=== PATIENT | female | born 1935 | race Caucasian/White ===

== ENCOUNTER → 2017-01-19 | Day surgery (SDC) | payer MEDICARE ==
[~2017-01-19] VITALS: Ht 165.1 cm; Wt 57.6 kg
[~2017-01-19] MED LIST: ACETYLCHOLINE OPHTH SOLN 1% 2ML As Ordered ONE; AMLO5TAB2 PO; ATOR1POW XX; BALANCED SALT IRRIGATION SOLUTION 500ML BAG (FOR OR EYE MACHINE) As Ordered ONE; CEFUROXIME 1MG/0.1ML INTRACAMERAL INJ As Ordered ONE; D5W/0.2% SODIUM CHLORIDE 250 ML IV SCH; HEALON DUET (HEALON 10MG/ML 0.55ML & HEALON ENDOCOAT 30MG/ML 0.85ML) As Ordered ONE; LIDOCAINE 0.75%/EPINEPHRINE 0.025% IN BSS 1ML SYR INTRACAMERAL (OR ONLY) As Ordered ONE; MIDAZOLAM INJ 2 MG/2 ML VIAL (J2250) As Ordered ONE; OFLOXACIN 0.3 % (OCUFLOX) OPTH SOL 5ML OD ONE; OXYB5TA PO; PHENYLEPHRINE 2.5% OPHTH SOL 2ML OD ONE; POVIDONE-IODINE 5% OPHTH PREP SOL 30ML As Ordered ONE; PROPARACAINE 0.5% OPHTH SOL 15ML OD ONE; TOBRADEX OPHTH OINT 3.5 GM As Ordered ONE; TROPICAMIDE 1% OPHTH SOLN 2 ML OD ONE; VITA500C19 PO; VITATAB11 PO; fentaNYL 100 MCG/2 ML INJECTION (J3010) As Ordered ONE
[2017-01-19 11:10] VITALS: BP 167/79
--- NOTE | 2017-01-20 08:45 | RO ---
DATE OF PROCEDURE: 01/19/2017 PREOPERATIVE DIAGNOSIS: Visually significant nuclear sclerotic cataract right eye. POSTOPERATIVE DIAGNOSIS: Visually significant nuclear sclerotic cataract right eye. PROCEDURE: Cataract extraction with use of phacoemulsification and placement of intraocular lens AU00T0, 23.5 Diopter, right eye. SURGEON: Kwesi Clifford DO HEADER MACHINE OPERATOR: ANESTHESIA: Local with monitored anesthesia care (MAC). COMPLICATIONS: None. POSTOPERATIVE CONDITION: Stable. INDICATION FOR SURGERY: Blurred vision right eye affecting patient's activities of daily living. DESCRIPTION OF PROCEDURE: The patient was seen in the preoperative area and properly identified. The correct operative eye was identified and marked. Attention was turned to that eye. The patient received topical antibiotics in the preoperative area. The patient then received topical dilating drops consisting of tropicamide and phenylephrine. The patient was then transferred to the operating room. The correct side was reidentified. The patient received topical anesthetics and antibiotics on the surface of the eye. The eye was prepped and draped in a sterile fashion. The upper and lower eyelids were isolated with Tegaderm tape, and the lids were held open with an adjustable speculum. Using a sideport blade, a paracentesis incision was made. Intraocular preservative-free lidocaine was then injected into the anterior chamber. Viscoelastic was then injected into the anterior chamber through the paracentesis. Using a 2.65 mm sharp-tipped keratome, the anterior chamber was entered via a temporal clear corneal incision. A continuous curvilinear capsulorrhexis was created with the aid of a 26-gauge cystotome and Utrata forceps. Hydrodissection was performed with balanced salt solution (BSS) on a blunt cannula until the nucleus was freely mobile. The crystalline lens was phacoemulsified and aspirated. Additional cohesive viscoelastic was placed into the capsular bag to deepen it. AU00T0, 23.5 Diopter lens was placed into the capsular bag and confirmed by visualizing the continuous curvilinear capsulorrhexis. Additional irrigation and aspiration was used to remove cortical material and remaining viscoelastic. The clear corneal incision was hydrated with BSS on a blunt cannula. The lens was well positioned. The incisions were then tested for leaks and found to be negative. The eye was then palpated for appropriate pressure and adjusted accordingly with BSS. The eyelid speculum was then carefully removed. Tobradex ointment was placed in the eye. An eye patch and shield were then secured over the eye. The patient tolerated the procedure well and was discharged to the recovery unit in a stable condition. DAVE
== END | disposition home or self-care (01) ==
LOC: M SDC 08:48
PROVIDERS: ATTEND Ophthalmology
DX: H25.11 Age-related nuclear cataract, right eye (principal); I10 Essential (primary) hypertension; E11.9 Type 2 diabetes mellitus without complications; E78.00 Pure hypercholesterolemia, unspecified; Z78.0 Asymptomatic menopausal state; Z79.899 Other long term (current) drug therapy
CPT/HCPCS: 66984; J2250; J3010; V2632

== ENCOUNTER → 2017-02-02 | Day surgery (SDC) | payer MEDICARE ==
[~2017-02-02] VITALS: Ht 165.1 cm; Wt 57.2 kg
[~2017-02-02] MED LIST changes: +D5W/0.2% SODIUM CHLORIDE 250 ML IV ONE; -D5W/0.2% SODIUM CHLORIDE 250 ML IV SCH; -HEALON DUET (HEALON 10MG/ML 0.55ML & HEALON ENDOCOAT 30MG/ML 0.85ML) As Ordered ONE; +LR 1,000 ML IV SCH; -OFLOXACIN 0.3 % (OCUFLOX) OPTH SOL 5ML OD ONE; +OFLOXACIN 0.3 % (OCUFLOX) OPTH SOL 5ML OS ONE; -PHENYLEPHRINE 2.5% OPHTH SOL 2ML OD ONE; +PHENYLEPHRINE 2.5% OPHTH SOL 2ML OS ONE; -PROPARACAINE 0.5% OPHTH SOL 15ML OD ONE; +PROPARACAINE 0.5% OPHTH SOL 15ML OS ONE; -TROPICAMIDE 1% OPHTH SOLN 2 ML OD ONE; +TROPICAMIDE 1% OPHTH SOLN 2 ML OS ONE
[2017-02-02] MEDS: HEALON DUET (HEALON 10MG/ML 0.55ML & HEALON ENDOCOAT 30MG/ML 0.85ML) As Ordered ONE ×2 (07:17→09:29)
[2017-02-02 10:30] VITALS: BP 140/79
--- NOTE | 2017-02-03 10:03 | RO ---
DATE OF PROCEDURE: 02/02/2017 PREOPERATIVE DIAGNOSIS: Visually significant nuclear sclerotic cataract left eye. POSTOPERATIVE DIAGNOSIS: Visually significant nuclear sclerotic cataract left eye. PROCEDURE: Cataract extraction with use of phacoemulsification and placement of intraocular lens AU00T0, 24.0 Diopter, left eye. SURGEON: Kwesi Clifford DO TUBER MACHINE CUTTER: ANESTHESIA: Local with monitored anesthesia care (MAC). COMPLICATIONS: None. POSTOPERATIVE CONDITION: Stable. INDICATION FOR SURGERY: Blurred vision left eye affecting patient's activities of daily living. DESCRIPTION OF PROCEDURE: The patient was seen in the preoperative area and properly identified. The correct operative eye was identified and marked. Attention was turned to that eye. The patient received topical antibiotics in the preoperative area. The patient then received topical dilating drops consisting of tropicamide and phenylephrine. The patient was then transferred to the operating room. The correct side was reidentified. The patient received topical anesthetics and antibiotics on the surface of the eye. The eye was prepped and draped in a sterile fashion. The upper and lower eyelids were isolated with Tegaderm tape, and the lids were held open with an adjustable speculum. Using a sideport blade, a paracentesis incision was made. Intraocular preservative-free lidocaine was then injected into the anterior chamber. Viscoelastic was then injected into the anterior chamber through the paracentesis. Using a 2.65 mm sharp-tipped keratome, the anterior chamber was entered via a temporal clear corneal incision. A continuous curvilinear capsulorrhexis was created with the aid of a 26-gauge cystotome and Utrata forceps. Hydrodissection was performed with balanced salt solution (BSS) on a blunt cannula until the nucleus was freely mobile. The crystalline lens was phacoemulsified and aspirated. Additional cohesive viscoelastic was placed into the capsular bag to deepen it. An AU00T0 24.0D lens was placed into the capsular bag and confirmed by visualizing the continuous curvilinear capsulorrhexis. Additional irrigation and aspiration was used to remove cortical material and remaining viscoelastic. The clear corneal incision was hydrated with BSS on a blunt cannula. The lens was well positioned. The incisions were then tested for leaks and found to be negative. The eye was then palpated for appropriate pressure and adjusted accordingly with BSS. The eyelid speculum was then carefully removed. Tobradex ointment was placed in the eye. An eye patch and shield were then secured over the eye. The patient tolerated the procedure well and was discharged to the recovery unit in a stable condition. DAVE
== END | disposition home or self-care (01) ==
LOC: M SDC 07:44
PROVIDERS: ATTEND Ophthalmology
DX: H25.12 Age-related nuclear cataract, left eye (principal); I10 Essential (primary) hypertension; E78.5 Hyperlipidemia, unspecified; K61.1 Rectal abscess; B95.62 Methicillin resistant Staphylococcus aureus infection as the cause of diseases classified elsewhere; M85.80 Other specified disorders of bone density and structure, unspecified site; Z79.899 Other long term (current) drug therapy; Z87.891 Personal history of nicotine dependence; Z86.14 Personal history of Methicillin resistant Staphylococcus aureus infection; Z86.010 Personal history of colon polyps
CPT/HCPCS: 66984; J2250; J3010; V2632

== ENCOUNTER → 2018-12-10 | Outpatient (CLI) | payer MEDICARE ==
[~2018-12-10] MED LIST changes: -ACETYLCHOLINE OPHTH SOLN 1% 2ML As Ordered ONE; -AMLO5TAB2 PO; +AMLO5TAB6 PO; -BALANCED SALT IRRIGATION SOLUTION 500ML BAG (FOR OR EYE MACHINE) As Ordered ONE; -CEFUROXIME 1MG/0.1ML INTRACAMERAL INJ As Ordered ONE; -D5W/0.2% SODIUM CHLORIDE 250 ML IV ONE; -LIDOCAINE 0.75%/EPINEPHRINE 0.025% IN BSS 1ML SYR INTRACAMERAL (OR ONLY) As Ordered ONE; -LR 1,000 ML IV SCH; -MIDAZOLAM INJ 2 MG/2 ML VIAL (J2250) As Ordered ONE; -OFLOXACIN 0.3 % (OCUFLOX) OPTH SOL 5ML OS ONE; -OXYB5TA PO; +OXYB5TAB10 PO; -PHENYLEPHRINE 2.5% OPHTH SOL 2ML OS ONE; -POVIDONE-IODINE 5% OPHTH PREP SOL 30ML As Ordered ONE; -PROPARACAINE 0.5% OPHTH SOL 15ML OS ONE; -TOBRADEX OPHTH OINT 3.5 GM As Ordered ONE; -TROPICAMIDE 1% OPHTH SOLN 2 ML OS ONE; -fentaNYL 100 MCG/2 ML INJECTION (J3010) As Ordered ONE
[2018-12-10 11:11] LABS: BASO % 0.7 % (0.0-1.0); EOS # 0.1 10^3/uL (0.0-0.50); EOS % 1.6 % (0.0-3.0); HEMATOCRIT 44.6 % (36.0-47.0); HEMOGLOBIN 14.5 g/dl (12.0-15.5); LYMPH # 1.2 10^3/uL (1.5-4.5); LYMPH % 21.1 % (24.0-44.0); MEAN CORPUSCULAR HEMOGLOBIN 28.8 pg (27.0-33.0); MEAN CORPUSCULAR HGB CONC 32.5 g/dl (32.0-36.5); MEAN CORPUSCULAR VOLUME 88.5 fl (80.0-96.0); MONO # 0.5 10^3/uL (0.0-0.8); MONO % 8.8 % (0.0-5.0); NEUTROPHILS # 3.8 10^3/uL (1.8-7.7); NEUTROPHILS % 67.6 % (36.0-66.0); PLATELET COUNT, AUTOMATED 247 10^3/uL (150-450); RED BLOOD COUNT 5.04 10^6/uL (4.00-5.40); WHITE BLOOD COUNT 5.6 10^3/uL (4.0-10.0)
[2018-12-10 11:58] LABS: ALBUMIN 3.9 GM/DL (3.2-5.2); ALT/SGPT 21 U/L (12-78); BILIRUBIN,TOTAL 0.4 MG/DL (0.2-1.0); BLOOD UREA NITROGEN 14 MG/DL (7-18); CALCIUM LEVEL 9.5 MG/DL (8.8-10.2); CARBON DIOXIDE LEVEL 29 MEQ/L (21-32); CHLORIDE LEVEL 107 MEQ/L (98-107); CHOLESTEROL LEVEL 215 MG/DL (<200); CHOLESTEROL RISK RATIO 2.756 (<5); CREATININE FOR GFR 0.59 MG/DL (0.55-1.30); GLOMERULAR FILTRATION RATE > 60.0 (>32); GLUCOSE, FASTING 94 MG/DL (70-100); HDL CHOLESTEROL 78 MG/DL (>40); LDL CHOLESTEROL 125 MG/DL (<100); NON-HDL-C 137 MG/DL; POTASSIUM SERUM 4.8 MEQ/L (3.5-5.1); SODIUM LEVEL 143 MEQ/L (136-145); TOTAL PROTEIN 7.1 GM/DL (6.4-8.2); TRIGLYCERIDES LEVEL 62 MG/DL (<150)
== END ==
LOC: M LAB 10:36
PROVIDERS: ATTEND Internal Medicine
DX: E78.5 Hyperlipidemia, unspecified (principal); I10 Essential (primary) hypertension; F02.80 Dementia in other diseases classified elsewhere, unspecified severity, without behavioral disturbance, psychotic disturbance, mood disturbance, and anxiety

== ENCOUNTER 2020-09-13 14:57 | Inpatient (IN) | payer MEDICARE ==
[~2020-09-13] VITALS: Ht 167.6 cm; Wt 116.0 kg
[~2020-09-13 14:57] MED LIST changes: +AMLO1TAB24 PO; -AMLO5TAB6 PO
[2020-09-13] MEDS ORDERED: PARO5TAB PO (15:06)
[2020-09-13 16:27] LABS: BASO % 0.1 % (0.0-1.0); HEMOGLOBIN 14.9 g/dl (12.0-15.5); LYMPH # 0.5 10^3/uL (1.5-5.0); LYMPH % 2.9 % (24.0-44.0); MEAN CORPUSCULAR HEMOGLOBIN 28.2 pg (27.0-33.0); MEAN CORPUSCULAR HGB CONC 31.7 g/dl (32.0-36.5); MEAN CORPUSCULAR VOLUME 88.8 fl (80.0-96.0); MONO # 0.7 10^3/uL (0.0-0.8); NEUTROPHILS # 15.9 10^3/uL (1.5-8.5); NEUTROPHILS % 92.6 % (36.0-66.0); PLATELET COUNT, AUTOMATED 272 10^3/uL (150-450); RED BLOOD COUNT 5.29 10^6/uL (4.00-5.40); WHITE BLOOD COUNT 17.2 10^3/uL (4.0-10.0)
[2020-09-13] MEDS ORDERED: NS 500 ML IV ONE (16:45)
[2020-09-13 16:56] LABS: ALBUMIN 3.2 GM/DL (3.2-5.2); ALT/SGPT 20 U/L (12-78); BILIRUBIN,DIRECT 0.2 MG/DL (0.0-0.2); BILIRUBIN,TOTAL 0.6 MG/DL (0.2-1.0); BLOOD UREA NITROGEN 31 MG/DL (7-18); CALCIUM LEVEL 10.2 MG/DL (8.8-10.2); CARBON DIOXIDE LEVEL 31 MEQ/L (21-32); CHLORIDE LEVEL 100 MEQ/L (98-107); CK-MB VALUE MASS < 1.0 NG/ML (<3.6); CPK CREATINE PHOSPHOKINASE 34 U/L (26-192); CREATININE FOR GFR 0.92 MG/DL (0.55-1.30); GLOMERULAR FILTRATION RATE > 60.0 (>32); GLUCOSE, FASTING 178 MG/DL (70-100); LIPASE 104 U/L (73-393); MB/CK RELATIVE INDEX 2.94 (< OR =4); POTASSIUM SERUM 4.2 MEQ/L (3.5-5.1); SODIUM LEVEL 135 MEQ/L (136-145); TOTAL PROTEIN 7.7 GM/DL (6.4-8.2); TROPONIN I < 0.02 NG/ML (< 0.10)
--- NOTE | 2020-09-13 17:20 | REPVR ---
PROCEDURE INFORMATION: Exam: CT Head Without Contrast Exam date and time: 09/13/2020 5:06 PM Age: 84 years old Clinical indication: Altered mental status/memory loss; Confusion or disorientation TECHNIQUE: Imaging protocol: Computed tomography of the head without contrast. Radiation optimization: All CT scans at this facility use at least one of these dose optimization techniques: automated exposure control; mA and/or kV adjustment per patient size (includes targeted exams where dose is matched to clinical indication); or iterative reconstruction. COMPARISON: No relevant prior studies available. FINDINGS: Brain: There are moderate periventricular and subcortical lucencies consistent with chronic microvascular ischemic changes. The rosenthal-white differentiation is maintained. No hemorrhage. No edema. Cerebral ventricles: No ventriculomegaly. Bones/joints: Unremarkable. No acute fracture. Paranasal sinuses: Visualized sinuses are unremarkable. No fluid levels. Mastoid air cells: Visualized mastoid air cells are well aerated. Soft tissues: Unremarkable. IMPRESSION: No acute intracranial abnormality. Chronic microvascular ischemic changes. Electronically signed by: Morgan Juan On 09/13/2020 17:20:17 PM
[2020-09-13 17:25] LABS: ACETAMINOPHEN LEVEL < 2.0 UG/ML (10.0-30.0); ETHYL ALCOHOL (ETHANOL) 0.003 % (0.000-0.010); FREE T4 1.69 NG/DL (0.76-1.46); MAGNESIUM LEVEL 2.4 MG/DL (1.8-2.4); SALICYLATE LEVEL < 1.7 MG/DL (5.0-30.0); THYROID STIMULATING HORMONE 0.883 uIU/ML (0.358-3.740)
--- NOTE | 2020-09-13 17:26 | REP ---
INDICATION: confusion, weakness. COMPARISON: No comparison study. TECHNIQUE: Two views.. FINDINGS: The lungs are well inflated and free of infiltrate. Monitoring electrodes are seen. The aorta is tortuous. Heart size is mildly enlarged. Pulmonary vasculature is not increased. Pleural angles are sharp. There are degenerative changes in the thoracic spine and aorta. IMPRESSION: Mild cardiomegaly. Otherwise no active disease.. <Electronically signed by Sg Sanchez > 09/13/20 [id number]
[2020-09-13 18:16] LABS: AMPHETAMINES LEVEL URINE NEGATIVE (NEGATIVE); BARBITURATES URINE NEGATIVE (NEGATIVE); BENZODIAZEPINES URINE NEGATIVE (NEGATIVE); CANNABINOIDS URINE NEGATIVE (NEGATIVE); COCAINE METABOLITE URINE NEGATIVE (NEGATIVE); METHADONE URINE NEGATIVE (NEGATIVE); OPIATES URINE NEGATIVE (NEGATIVE); PHENCYCLIDINE URINE NEGATIVE (NEGATIVE)
[2020-09-13] MEDS ORDERED: ISOVUE-370 76% 100ML VIAL As Ordered ONE (18:34)
[2020-09-13 18:46] LABS: NT-PRO BNP 328 PG/ML (<450)
--- NOTE | 2020-09-13 19:25 | REPVR ---
PROCEDURE INFORMATION: Exam: CT Abdomen And Pelvis With Contrast Exam date and time: 09/13/2020 6:46 PM Age: 84 years old Clinical indication: Other: Failure to thrive; Additional info: Failure to thrive, lower abdominal pain TECHNIQUE: Imaging protocol: Computed tomography of the abdomen and pelvis with intravenous contrast. Radiation optimization: All CT scans at this facility use at least one of these dose optimization techniques: automated exposure control; mA and/or kV adjustment per patient size (includes targeted exams where dose is matched to clinical indication); or iterative reconstruction. Contrast material: ISOVUE 370; Contrast volume: 100 ml; Contrast route: INTRAVENOUS (IV); COMPARISON: No relevant prior studies available. FINDINGS: Heart: Cardiomegaly. Liver: Cyst in the right hepatic lobe measuring 2.8 x 2.4 cm. Gallbladder and bile ducts: Common bile duct is prominent measuring 1 cm. 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 Spleen: Normal. No splenomegaly. Adrenal glands: Normal. No mass. Kidneys and ureters: Multiple right renal cysts, the largest measures 3 cm in the lower pole. Left multiple renal cysts. The largest measures 1.2 cm at the upper pole. The right ureter is distended. No obstructing calculi. The bladder is distended. Stomach and bowel: There is colonic sigmoid colonic wall thickening with pericolonic fat stranding of the distal sigmoid colon (series 202, image 74). Appendix: No evidence of appendicitis. Intraperitoneal space: Unremarkable. No free air. No significant fluid collection. Vasculature: Unremarkable. No abdominal aortic aneurysm. Lymph nodes: Unremarkable. No enlarged lymph nodes. Urinary bladder: See "Kidneys and ureters" finding. Reproductive: Unremarkable as visualized. Bones/joints: Grade 1 anterolisthesis of L4 over L5 and grade 1 retrolisthesis of L5 over S1. Soft tissues: Unremarkable. IMPRESSION: Finding suspicious of acute diverticulitis. Prominent bilateral renal pelvises and ureters with a overly distended bladder. COMMENTS: Consistent with the [employer]'s Incidental Findings Committee white paper (J Am Randall Radiol 2018): Any incidental renal lesion less than 1 cm or classified as too small to characterize, or any incidental cystic renal lesion characterized as simple-appearing, is likely benign. No follow-up imaging is recommended for these lesions per consensus recommendations based on imaging criteria. Electronically signed by: Morgan Juan On 09/13/2020 19:25:25 PM
[2020-09-13] MEDS ORDERED: metroNIDAZOLE (FLAGYL) 500MG TABLET PO ONE (19:45)
[2020-09-13] MEDS ORDERED: CIPROFLOXACIN 500MG TABLET PO ONE (19:45)
--- NOTE | 2020-09-13 20:39 | HPEPDOC ---
General Date of Admission 09/13/20 Date of Service: Sep 13, 2020 Chief Complaint The patient is a 84-year-old female admitted with a reason for visit of Gen Med Complaint. Source: Patient, Caregiver Exam Limitations: Dementia Timing/Duration: Day(s) Severity: Mild History of Present Illness Patient is 84 years old female with past medical history of nephrolithiasis, depression presented to the hospital with generalized weakness. According to her daughter who stated that patient has Alzheimer, her mom developed generalized weakness around 3-4 days ago associated with dysuria. PCP treated patient with ciprofloxacin days. However patient continues to have generalized weakness. In ER patient was found to have leukocytosis of 17, UA unremarkable. CT abdomen and pelvis showed Finding suspicious of acute diverticulitis. EKG showed multiple PVCs with sinus rhythm Home Medications Scheduled Paroxetine (Paroxetine HCl) 10 Mg Tablet, 10 MG PO DAILY, (Reported) Allergies Coded Allergies: No Known Allergies (Unverified , 01/10/17) Past Medical History Medical History UTI, nephrolithiasis, depression, possible Alzheimer Surgical History Left ankle fracture Family History I personally reviewed family history and found not pertinent Social History * Smoker: Denies Alcohol: Denies Drugs: denies A-FIB/CHADSVASC A-FIB History Current/History of A-Fib/PAF?: No Current PO Anticoag Therapy: No Review of Systems Constitutional: Reports: Malaise, Weakness; Denies: Chills Eyes: Denies: Pain ENT: Denies: Head Aches Skin: Denies: Rash, Lesions Pulmonary: Denies: Dyspnea Cardiovascular: Denies: Chest Pain Gastrointestinal: Denies: Nausea, Vomiting, Abdominal Pain Genitourinary: Denies: Dysuria, Frequency Hematologic: Denies: Bruising Endocrine: Denies: Polydipsia Musculoskeletal: Denies: Neck Pain Neurological: Denies: Weakness Psych: Reports: Memory Issues Physical Examination General Exam: Positive: Alert, Cooperative Eye Exam: Positive: PERRLA ENT Exam: Positive: Atraumatic Neck Exam: Positive: Supple; Negative: JVD Chest Exam: Positive: Clear to auscultation Heart Exam: Positive: Irregular Rhythm Telemetry: Positive: Sinus Abdomen Exam: Positive: Tenderness (right lower quadrant) Extremity Exam: Negative: Clubbing, Cyanosis Skin Exam: Positive: Nl turgor and temperature Neuro Exam: Positive: Strength at 5/5 X4 ext, Cranial Nerves 3-12 NL Psych Exam: Positive: Mental status NL Vital Signs Vital Signs Date Time Temp Pulse Resp B/P (MAP) Pulse Ox O2 Delivery O2 Flow Rate FiO2 09/13/20 19:08 98.6 117 16 136/65 (88) 95 Room Air Laboratory Data Labs 24H Laboratory Tests 2 09/13/20 16:05: Immature Granulocyte % (Auto) 0.4, Neutrophils (%) (Auto) 92.6H, Lymphocytes (%) (Auto) 2.9L, Monocytes (%) (Auto) 4.0, Eosinophils (%) (Auto) 0.0, Basophils (%) (Auto) 0.1, Neutrophils # (Auto) 15.9H, Lymphocytes # (Auto) 0.5L, Monocytes # (Auto) 0.7, Eosinophils # (Auto) 0.0, Basophils # (Auto) 0.0, Nucleated Red Blood Cells % (auto) 0.0, Anion Gap 4L, Glomerular Filtration Rate > 60.0, Calcium Level 10.2, Magnesium Level 2.4, Total Bilirubin 0.6, Direct Bilirubin 0.2, Aspartate Amino Transf (AST/SGOT) 16, Alanine Aminotransferase (ALT/SGPT) 20, Alkaline Phosphatase 86, Total Creatine Kinase 34, Creatine Kinase MB < 1.0, Creatine Kinase MB Relative Index 2.94, Troponin I < 0.02, CR-Aos-W-Type Natriuretic Peptide 328, Total Protein 7.7, Albumin 3.2, Albumin/Globulin Ratio 0.7L, Lipase 104, Thyroid Stimulating Hormone (TSH) 0.883, Free Thyroxine 1.69H, Salicylates Level < 1.7L, Acetaminophen Level < 2.0L, Ethyl Alcohol Level 0.003 09/13/20 17:43: Urine Color YELLOW, Urine Appearance HAZY, Urine pH 5.0, Urine Specific [place] 1.018, Urine Protein 1+H, Urine Glucose (UA) NEGATIVE, Urine Ketones NEGATIVE, Urine Blood NEGATIVE, Urine Nitrite NEGATIVE, Urine Bilirubin NEGATIVE, Urine Urobilinogen 0.2, Urine Leukocyte Esterase NEGATIVE, Urine WBC (Auto) 8H, Urine RBC (Auto) 0, Urine Hyaline Casts (Auto) 0, Urine Bacteria (Auto) NEGATIVE, Urine Squamous Epithelial Cells 0, Urine Mucus (Auto) SMALL, Urine Sperm (Auto) , Urine Opiates Screen NEGATIVE, Urine Methadone Screen NEGATIVE, Urine Barbiturates Screen NEGATIVE, Urine Phencyclidine Screen NEGATIVE, Urine Amphetamines Screen NEGATIVE, Urine Benzodiazepines Screen NEGATIVE, Urine Cocaine Metabolite Screen NEGATIVE, Urine Cannabinoids Screen NEGATIVE 09/13/20 19:48: 09/13/20 20:17: CBC/BMP Laboratory Tests 09/13/20 16:05 Microbiology Microbiology 09/13/20 Urine Culture, Received Pending Assessment/Plan Patient is 84 years old female with past medical history of nephrolithiasis, depression presented to the hospital with generalized weakness. According to her daughter who stated that patient has Alzheimer, her mom developed generalized weakness around 3-4 days ago associated with dysuria. PCP treated patient with ciprofloxacin days. However patient continues to have generalized weakness. In ER patient was found to have leukocytosis of 17, UA unremarkable. CT abdomen and pelvis showed Finding suspicious of acute diverticulitis. EKG showed multiple PVCs with sinus rhythm Problems (1) Diverticulitis Status: Acute Problem Text: CT shows Finding suspicious of acute diverticulitis. Cipro IV, Flagyl IV Clear liquid diet for now (2) Failure to thrive Status: Acute Problem Text: PT/OT (3) Irregular heart rhythm Status: Acute Problem Text: Patient has multiple PVCs Telemetry Metoprolol 12.5 Consider milk inspector consult in the morning (4) SIRS (systemic inflammatory response syndrome) Status: Acute Problem Text: Patient has tachycardia with leukocytosis Continue to monitor IV fluid Plan / VTE VTE Prophylaxis Ordered?: Yes CYNTHIA OZUNA DO Sep 13, 2020 20:39
[2020-09-13] MEDS ORDERED: METOPROLOL TART 25 MG TABLET PO ONE (20:45)
[2020-09-13] MEDS ORDERED: CIPROFLOXACIN 400 MG in IV 1 EA IV SCH (21:00)
[2020-09-13] MEDS: NS 1,000 ML IV SCH (22:13)
[2020-09-13] MEDS ORDERED: PILL CUTTER 1 EACH XX ONE (22:18)
[2020-09-13] MEDS: ACETAMINOPHEN TAB 650MG DOSE (2X325MG) PO PRN (22:22)
[2020-09-13 22:25] VITALS: BP 109/71
[2020-09-14] MEDS: metroNIDAZOLE 500 MG in IV 1 EA IV SCH ×4 (00:04→20:19)
[2020-09-14 02:27] LABS: HEMATOCRIT 39.7 % (36.0-47.0); MEAN CORPUSCULAR HEMOGLOBIN 27.9 pg (27.0-33.0); MEAN CORPUSCULAR HGB CONC 31.7 g/dl (32.0-36.5); PLATELET COUNT, AUTOMATED 236 10^3/uL (150-450); RED BLOOD COUNT 4.51 10^6/uL (4.00-5.40); WHITE BLOOD COUNT 17.1 10^3/uL (4.0-10.0)
[2020-09-14 02:36] LABS: HEMOGLOBIN 12.6 g/dl (12.0-15.5)
[2020-09-14 03:14] LABS: ALBUMIN 2.6 GM/DL (3.2-5.2); ALT/SGPT 15 U/L (12-78); BILIRUBIN,TOTAL 0.5 MG/DL (0.2-1.0); BLOOD UREA NITROGEN 26 MG/DL (7-18); CALCIUM LEVEL 8.6 MG/DL (8.8-10.2); CARBON DIOXIDE LEVEL 29 MEQ/L (21-32); CHLORIDE LEVEL 104 MEQ/L (98-107); CREATININE FOR GFR 0.62 MG/DL (0.55-1.30); GLOMERULAR FILTRATION RATE > 60.0 (>32); GLUCOSE, FASTING 129 MG/DL (70-100); MAGNESIUM LEVEL 2.1 MG/DL (1.8-2.4); POTASSIUM SERUM 3.6 MEQ/L (3.5-5.1); SODIUM LEVEL 138 MEQ/L (136-145); TOTAL PROTEIN 5.4 GM/DL (6.4-8.2)
[2020-09-14 08:45] VITALS: BP 118/66
[2020-09-14] MEDS: NS 1,000 ML IV SCH ×2 (08:53→17:14)
--- NOTE | 2020-09-14 09:18 | ECGEPIP ---
[facility] - ED Test Date: 2020-09-13 Pat Name: MAGEN LOFTON Department: Room: - Gender: Female Installment Account Checker: : 1935 Requested By: MIRNA Ryan PA-C Order Number: [id number] Reading MD: Isaias Porter Measurements Intervals [place] Rate: 103 P: [place]: 0 QRS: -87 QRSD: 152 T: 44 QT: 355 QTc: 467 Interpretive Statements SINUS RHYTHM WITH FREQUENT SUPRAVENTRICULAR AND VENTRICULAR PREMATURE COMPLEXES MARKED LEFT AXIS DEVIATION RIGHT BUNDLE BRANCH BLOCK POSSIBLE SEPTAL MYOCARDIAL INFARCTION, PROBABLY OLD NO PRIORS FOR COMPARISON Electronically Signed on 09-14-2020 9:18:08 EST by Isaias Porter
[2020-09-14] MEDS: PARoxetine 10MG TABLET PO SCH (12:08)
[2020-09-14] MEDS: cefTRIAXone SOD 1 GM in D5W MINI-BAG PLUS 50 ML IV SCH (12:09)
[2020-09-14] MEDS: ENOXAPARIN 40MG/0.4ML SYRINGE (J1650 PER 10MG) SC SCH (12:09)
--- NOTE | 2020-09-14 12:40 | IPNPDOC ---
Subjective Date Seen The patient was seen on 09/14/20. Subjective Chief Complaint/HPI Patient sleeping wakes up easily. Does not want me to touch her abdomen and winces when it palpate her lower abdomen and tried to push away my hand. When i ask if she had pain she says no . No fever or chills, Daughter at bedside says that she has been sleeping all day and refusing to tke any food only has been drinking some water. Objective Physical Examination General Exam: Positive: Cooperative, No Acute Distress, Other (somnolent but easily arousable. ) Eye Exam: Positive: PERRLA, Conjunctiva & lids normal, EOMI; Negative: Sclera icteric ENT Exam: Positive: Atraumatic, Mucous membr. moist/pink, Pharynx Normal Neck Exam: Positive: Supple; Negative: JVD Chest Exam: Positive: Clear to auscultation, Normal air movement Heart Exam: Positive: Rate Normal, Regular Rhythm, Normal S1, Normal S2; Negative: Murmurs, Rubs Abdomen Exam: Positive: Normal bowel sounds, Tenderness (in all over the lower abdomen), Other (No guarding or rigidity) Extremity Exam: Negative: Clubbing, Cyanosis Skin Exam: Positive: Nl turgor and temperature Neuro Exam: Positive: Strength at 5/5 X4 ext, Cranial Nerves 3-12 NL Psych Exam: Positive: Mental status NL Assessment /Plan Assessment Patient is 84 years old female with past medical history of Dementia, nephrolithiasis, depression, hypertension, hyperlipidemia presented to the hospital with generalized weakness, poor appetite , excessive somnolence for the past 3 days. She had dysuria last week and was confused agitated , not sleeping not eating for 2 days last week so was seen by PMD and diagnosed with an UTI and given cipro for 3 days which finished on 09/12/20. Now she has become very somnolent still not eating anything so was brought to the ED. In ER patient was found to have leukocytosis of 17, UA unremarkable. CT abdomen and pelvis showed Finding suspicious of acute diverticulitis. EKG showed multiple PVCs with sinus rhythm Acute Diverticulitis ceftriaxone and flagyl Clear liquid diet for now Dementia On paxel to help with appetite. daughter at bedside Failure to thrive decreased oral intake over the past several months so was started on Paxel wich helped a little but last 1 to 2 weeks very poor appetite. nutritional consult. patient has dropped weight as per daughter will stop atrovastatin. Irregular heart rhythm EKG with SINUS RHYTHM WITH FREQUENT SUPRAVENTRICULAR AND VENTRICULAR PREMATURE COMPLEXES, MARKED LEFT AXIS DEVIATION, RIGHT BUNDLE BRANCH BLOCK POSSIBLE SEPTAL MYOCARDIAL INFARCTION, PROBABLY OLD Hypertension now bp low to normal will hold amlodipine. Urge incontinence CT abdomen showed distended bladder with dilated right ureter will get a post void bladder scan and staright cath prn. will continue oxybutinin. VS, I&O, 24H, Fishbone Vital Signs/I&O Vital Signs Date Time Temp Pulse Resp B/P (MAP) Pulse Ox O2 Delivery O2 Flow Rate FiO2 09/14/20 08:45 98.9 70 15 118/66 (83) 93 Room Air I&O- Last 24 Hours up to 6 AM 09/14/20 06:00 Intake Total 900 ml Balance 900 ml Laboratory Data 24H LABS Laboratory Tests 2 09/13/20 16:05: Immature Granulocyte % (Auto) 0.4, Neutrophils (%) (Auto) 92.6H, Lymphocytes (%) (Auto) 2.9L, Monocytes (%) (Auto) 4.0, Eosinophils (%) (Auto) 0.0, Basophils (%) (Auto) 0.1, Neutrophils # (Auto) 15.9H, Lymphocytes # (Auto) 0.5L, Monocytes # (Auto) 0.7, Eosinophils # (Auto) 0.0, Basophils # (Auto) 0.0, Nucleated Red Blood Cells % (auto) 0.0, Anion Gap 4L, Glomerular Filtration Rate > 60.0, Calcium Level 10.2, Magnesium Level 2.4, Total Bilirubin 0.6, Direct Bilirubin 0.2, Aspartate Amino Transf (AST/SGOT) 16, Alanine Aminotransferase (ALT/SGPT) 2 0, Alkaline Phosphatase 86, Total Creatine Kinase 34, Creatine Kinase MB < 1.0, Creatine Kinase MB Relative Index 2.94, Troponin I < 0.02, ET-Pfh-N-Type Natriuretic Peptide 328, Total Protein 7.7, Albumin 3.2, Albumin/Globulin Ratio 0.7L, Lipase 104, Thyroid Stimulating Hormone (TSH) 0.883, Free Thyroxine 1.69H, Salicylates Level < 1.7L, Acetaminophen Level < 2.0L, Ethyl Alcohol Level 0.003 09/13/20 17:43: Urine Color YELLOW, Urine Appearance HAZY, Urine pH 5.0, Urine Specific [place] 1.018, Urine Protein 1+H, Urine Glucose (UA) NEGATIVE, Urine Ketones NEGATIVE, Urine Blood NEGATIVE, Urine Nitrite NEGATIVE, Urine Bilirubin NEGATIVE, Urine Urobilinogen 0.2, Urine Leukocyte Esterase NEGATIVE, Urine WBC (Auto) 8H, Urine RBC (Auto) 0, Urine Hyaline Casts (Auto) 0, Urine Bacteria (Auto) NEGATIVE, Urine Squamous Epithelial Cells 0, Urine Mucus (Auto) SMALL, Urine Sperm (Auto) , Urine Opiates Screen NEGATIVE, Urine Methadone Screen NEGATIVE, Urine Barbiturates Screen NEGATIVE, Urine Phencyclidine Screen NEGATIVE, Urine Amphetamines Screen NEGATIVE, Urine Benzodiazepines Screen NEGATIVE, Urine Cocaine Metabolite Screen NEGATIVE, Urine Cannabinoids Screen NEGATIVE 09/13/20 19:48: Coronavirus (COVID-19)(PCR) NEGATIVE, Influenza Type A (RT-PCR) NEGATIVE, Influenza Type B (RT-PCR) NEGATIVE, Respiratory Syncytial Virus (PCR) NEGATIVE 09/13/20 20:17: Lactic Acid Level 1.0 09/13/20 21:22: Procalcitonin 12.09 09/14/20 02:19: Nucleated Red Blood Cells % (auto) 0.0, Anion Gap 5L, Glomerular Filtration Rate > 60.0, Lactic Acid Level 1.1, Calcium Level 8.6#L, Magnesium Level 2.1, Total Bilirubin 0.5, Aspartate Amino Transf (AST/SGOT) 13, Alanine Aminotransferase (ALT/SGPT) 15, Alkaline Phosphatase 69, Total Protein 5.4#L, Albumin 2.6L, Albumin/Globulin Ratio 0.9L CBC/BMP Laboratory Tests 09/13/20 16:05 09/14/20 02:19 Microbiology Microbiology 09/13/20 Blood Culture, Received Pending 09/13/20 Blood Culture, Received Pending 09/13/20 Urine Culture - Final, Complete RACHEL RAMOS MD Sep 14, 2020 12:40
[2020-09-14 14:00] VITALS: BP 138/79
--- NOTE | 2020-09-14 16:39 | ECGEPIP ---
[facility] Test Date: 2020-09-14 Pat Name: MAGEN LOFTON Department: Room: [place] [address] Gender: Female Duty Officer: carter : 1935 Requested By: KAVYA HAYNES Order Number: [id number] Reading MD: Samuel Garcia Measurements Intervals [place] Rate: 73 P: 74 [place]: 142 QRS: -87 QRSD: 176 T: -22 QT: 443 QTc: 490 Interpretive Statements SINUS RHYTHM WITH FREQUENT VENTRICULAR PREMATURE COMPLEXES MARKED LEFT AXIS DEVIATION Right bundle-branch block with left anterior fascicular block POSSIBLE SEPTAL MYOCARDIAL INFARCTION, PROBABLY OLD Decreased heart rate compared with 09/13/2020. Electronically Signed on 09-14-2020 16:38:54 EST by Samuel Garcia
[2020-09-14] MEDS: QUEtiapine FUMARATE 25 MG TAB PO SCH (20:19)
[2020-09-14 22:00] VITALS: BP 132/91
[2020-09-15] MEDS: metroNIDAZOLE 500 MG in IV 1 EA IV SCH ×3 (03:46→20:39)
[2020-09-15] MEDS: NS 1,000 ML IV SCH ×2 (03:46→17:24)
[2020-09-15 06:00] VITALS: BP 112/57
[2020-09-15 07:49] LABS: BASO % 0.1 % (0.0-1.0); EOS % 0.1 % (0.0-3.0); HEMATOCRIT 37.5 % (36.0-47.0); HEMOGLOBIN 12.4 g/dl (12.0-15.5); LYMPH # 0.9 10^3/uL (1.5-5.0); LYMPH % 5.4 % (24.0-44.0); MEAN CORPUSCULAR HEMOGLOBIN 29.3 pg (27.0-33.0); MEAN CORPUSCULAR HGB CONC 33.1 g/dl (32.0-36.5); MEAN CORPUSCULAR VOLUME 88.7 fl (80.0-96.0); MONO # 1.2 10^3/uL (0.0-0.8); MONO % 7.1 % (0.0-5.0); NEUTROPHILS # 14.4 10^3/uL (1.5-8.5); NEUTROPHILS % 86.6 % (36.0-66.0); PLATELET COUNT, AUTOMATED 235 10^3/uL (150-450); RED BLOOD COUNT 4.23 10^6/uL (4.00-5.40); WHITE BLOOD COUNT 16.6 10^3/uL (4.0-10.0)
[2020-09-15 07:57] LABS: BLOOD UREA NITROGEN 19 MG/DL (7-18); CALCIUM LEVEL 8.9 MG/DL (8.8-10.2); CARBON DIOXIDE LEVEL 26 MEQ/L (21-32); CHLORIDE LEVEL 110 MEQ/L (98-107); CREATININE FOR GFR 0.63 MG/DL (0.55-1.30); GLOMERULAR FILTRATION RATE > 60.0 (>32); GLUCOSE, FASTING 91 MG/DL (70-100); POTASSIUM SERUM 3.4 MEQ/L (3.5-5.1); SODIUM LEVEL 140 MEQ/L (136-145)
--- NOTE | 2020-09-15 10:58 | IPNPDOC ---
Date Seen The patient was seen on 09/15/20. Progress Note Subjective; not eating at all per daughter. 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 urine retention and bladderscanned last night, unable to rest per daughter, no fever, chills due to severe dementia, unable to provide ros Objective: PE vitals: see below General Exam: no distress sleeping soundly, (daughter does not want her awakened) HEENT: no jvd . Chest Exam: Clear to auscultation Heart Exam:Rate Normal, Regular Rhythm, Normal S1, Normal S2; Abdomen Exam:Normal bowel sounds, soft nt nd Extremity Exam: Negative: Clubbing, Cyanosis, edema Laboratory data/imaging: see below Assessment: Patient is 84 years old female with past medical history of Dementia, nephrolithiasis, depression, hypertension, hyperlipidemia admitted for AMS, treated for UTI as outpt, found to have acute diverticulitis. Acute Diverticulitis Dementia, endstage Failure to thrive Abnormal EKG: RBBB , PVC's Hypertension Urge retention Plan: daughter requesting hospice and can provide 24/7 care at home. wants her mom dc'ed home crystal. discussed options for rx including npo, tpn until abd pain resolves, repeat ct if concerning for abscess or perforation vs. 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 hospice. she willspeak w pfs and the rest of the family. VS, I&O, 24H, Fishbone Vital Signs/I&O Vital Signs Date Time Temp Pulse Resp B/P (MAP) Pulse Ox O2 Delivery O2 Flow Rate FiO2 09/15/20 06:00 98.4 76 18 112/57 (75) 95 Room Air I&O- Last 24 Hours up to 6 AM 09/15/20 06:00 Intake Total 1750 ml Output Total 250 ml Balance 1500 ml Laboratory Data 24H LABS Laboratory Tests 2 09/15/20 06:50: Immature Granulocyte % (Auto) 0.7, Neutrophils (%) (Auto) 86.6H, Lymphocytes (%) (Auto) 5.4L, Monocytes (%) (Auto) 7.1H, Eosinophils (%) (Auto) 0.1, Basophils (%) (Auto) 0.1, Neutrophils # (Auto) 14.4H, Lymphocytes # (Auto) 0.9L, Monocytes # (Auto) 1.2H, Eosinophils # (Auto) 0.0, Basophils # (Auto) 0.0, Nucleated Red Blood Cells % (auto) 0.0, Anion Gap 4L, Glomerular Filtration Rate > 60.0, Calcium Level 8.9 CBC/BMP Laboratory Tests 09/15/20 06:50 Microbiology Microbiology 09/13/20 Blood Culture - Preliminary, Resulted No growth after 24 hours . All specim... 09/13/20 Blood Culture - Preliminary, Resulted No growth after 24 hours . All specim... 09/13/20 Urine Culture - Final, Complete DANIKA LOPEZ MD Sep 15, 2020 10:58
[2020-09-15] MEDS: cefTRIAXone SOD 1 GM in D5W MINI-BAG PLUS 50 ML IV SCH (11:02)
[2020-09-15] MEDS: PARoxetine 10MG TABLET PO SCH (12:14)
[2020-09-15] MEDS: POTASSIUM CHLORIDE 10 MEQ SR TABLET PO ONE ×2 (12:14→13:45)
[2020-09-15] MEDS: ENOXAPARIN 40MG/0.4ML SYRINGE (J1650 PER 10MG) SC SCH (12:14)
[2020-09-15 14:00] VITALS: BP 132/66
[2020-09-15] MEDS: QUEtiapine FUMARATE 25 MG TAB PO SCH (20:39)
[2020-09-15 22:00] VITALS: BP 135/66
[2020-09-16] MEDS: metroNIDAZOLE 500 MG in IV 1 EA IV SCH ×3 (04:36→20:25)
[2020-09-16 06:00] VITALS: BP 134/66
[2020-09-16 06:08] LABS: BASO % 0.1 % (0.0-1.0); EOS % 0.2 % (0.0-3.0); HEMATOCRIT 38.3 % (36.0-47.0); LYMPH # 0.9 10^3/uL (1.5-5.0); LYMPH % 6.3 % (24.0-44.0); MEAN CORPUSCULAR HEMOGLOBIN 27.6 pg (27.0-33.0); MEAN CORPUSCULAR HGB CONC 31.3 g/dl (32.0-36.5); MEAN CORPUSCULAR VOLUME 88.2 fl (80.0-96.0); MONO # 0.9 10^3/uL (0.0-0.8); MONO % 6.6 % (0.0-5.0); NEUTROPHILS # 11.6 10^3/uL (1.5-8.5); PLATELET COUNT, AUTOMATED 260 10^3/uL (150-450); RED BLOOD COUNT 4.34 10^6/uL (4.00-5.40); WHITE BLOOD COUNT 13.5 10^3/uL (4.0-10.0)
[2020-09-16 06:29] LABS: BLOOD UREA NITROGEN 17 MG/DL (7-18); CALCIUM LEVEL 8.6 MG/DL (8.8-10.2); CARBON DIOXIDE LEVEL 24 MEQ/L (21-32); CHLORIDE LEVEL 115 MEQ/L (98-107); CREATININE FOR GFR 0.45 MG/DL (0.55-1.30); GLOMERULAR FILTRATION RATE > 60.0 (>32); GLUCOSE, FASTING 91 MG/DL (70-100); POTASSIUM SERUM 3.2 MEQ/L (3.5-5.1); SODIUM LEVEL 144 MEQ/L (136-145)
[2020-09-16] MEDS: cefTRIAXone SOD 1 GM in D5W MINI-BAG PLUS 50 ML IV SCH (09:19)
[2020-09-16] MEDS: PARoxetine 10MG TABLET PO SCH (09:20)
[2020-09-16] MEDS: KCL 40MEQ IN D5/0.45NS 1000ML 1,000 ML IV SCH (09:20)
[2020-09-16] MEDS: ENOXAPARIN 40MG/0.4ML SYRINGE (J1650 PER 10MG) SC SCH (09:20)
--- NOTE | 2020-09-16 12:35 | IPNPDOC ---
Date Seen The patient was seen on 09/16/20. Progress Note Subjective; Denies any nausea, vomiting. Complains of 2 out of 10 pain when she is lying on her left side. No fevers, chills overnight. Per daughter, only taking about 10-20% of her liquid diet. Still on IV fluids Objective: PE vitals: see below General Exam: Answering questions appropriately. No distress HEENT: no jvd .. Dry mucous membranes. Recheck lipids Chest Exam: Clear to auscultation Heart Exam:Rate Normal, Regular Rhythm, Normal S1, Normal S2; Abdomen Exam:Normal bowel sounds, soft nt nd Extremity Exam: Negative: Clubbing, Cyanosis, edema Laboratory data/imaging: see below Assessment: Patient is 84 years old female with past medical history of Dementia, nephrolithiasis, depression, hypertension, hyperlipidemia admitted for AMS, treated for UTI as outpt, found to have acute diverticulitis. Acute Diverticulitis Dementia, endstage Failure to thrive Abnormal EKG: RBBB , PVC's Hypertension Urge retention Plan: Daughter wants to wait until Monday decided on hospice for now. She is agreeable to giving her mother Javier. Nutrition has been consulted for supplemental nutrition. We'll start on ensure 3 times a day with her meals. For now at a bed to chair and ambulate 4 times a day with assistance, fall precautions, DVT prophylaxis. Patient is DO NOT RESUSCITATE, DO NOT INTUBATE VS, I&O, 24H, Fishbone Vital Signs/I&O Vital Signs Date Time Temp Pulse Resp B/P (MAP) Pulse Ox O2 Delivery O2 Flow Rate FiO2 09/16/20 06:00 97.6 50 16 134/66 (88) 94 Room Air I&O- Last 24 Hours up to 6 AM 09/16/20 06:00 Intake Total 0 ml Output Total 0 ml Balance 0 ml Laboratory Data 24H LABS Laboratory Tests 2 09/16/20 05:46: Immature Granulocyte % (Auto) 0.8, Neutrophils (%) (Auto) 86.0H, Lymphocytes (%) (Auto) 6.3L, Monocytes (%) (Auto) 6.6H, Eosinophils (%) (Auto) 0.2, Basophils (%) (Auto) 0.1, Neutrophils # (Auto) 11.6H, Lymphocytes # (Auto) 0.9L, Monocytes # (Auto) 0.9H, Eosinophils # (Auto) 0.0, Basophils # (Auto) 0.0, Nucleated Red Blood Cells % (auto) 0.0, Anion Gap 5L, Glomerular Filtration Rate > 60.0, C alcium Level 8.6L 09/16/20 09:37: Methicillin-Resist S.aureus DNA PCR NOT DETECTED CBC/BMP Laboratory Tests 09/16/20 05:46 Microbiology Microbiology 09/13/20 Blood Culture - Preliminary, Resulted 09/13/20 Blood Culture - Preliminary, Resulted No Growth after 48 hours. All Specime... 09/13/20 Urine Culture - Final, Complete DANIKA LOPEZ MD Sep 16, 2020 12:35
[2020-09-16] MEDS: MEGESTROL 400MG 10ML SUSP ORAL SYRINGE *DRAW UP EXACT DOSE PO SCH (12:45)
[2020-09-16] MEDS: NYSTATIN 500,000 U/5 ML SUSP UDC SS SCH ×3 (12:45→20:25)
[2020-09-16 14:00] VITALS: BP 143/74
[2020-09-16] MEDS: QUEtiapine FUMARATE 25 MG TAB PO SCH (20:25)
[2020-09-16] MEDS: ACETAMINOPHEN TAB 650MG DOSE (2X325MG) PO PRN (20:27)
[2020-09-16 22:00] VITALS: BP 118/63
[2020-09-17] MEDS: KCL 40MEQ IN D5/0.45NS 1000ML 1,000 ML IV SCH ×2 (01:40→08:49)
[2020-09-17] MEDS: metroNIDAZOLE 500 MG in IV 1 EA IV SCH (04:26)
[2020-09-17 05:51] LABS: BASO % 0.2 % (0.0-1.0); EOS # 0.1 10^3/uL (0.0-0.5); HEMATOCRIT 39.2 % (36.0-47.0); HEMOGLOBIN 12.9 g/dl (12.0-15.5); LYMPH % 8.3 % (24.0-44.0); MEAN CORPUSCULAR HEMOGLOBIN 29.1 pg (27.0-33.0); MEAN CORPUSCULAR HGB CONC 32.9 g/dl (32.0-36.5); MEAN CORPUSCULAR VOLUME 88.3 fl (80.0-96.0); MONO # 0.9 10^3/uL (0.0-0.8); MONO % 7.9 % (0.0-5.0); NEUTROPHILS # 9.7 10^3/uL (1.5-8.5); NEUTROPHILS % 81.6 % (36.0-66.0); PLATELET COUNT, AUTOMATED 286 10^3/uL (150-450); RED BLOOD COUNT 4.44 10^6/uL (4.00-5.40); WHITE BLOOD COUNT 11.8 10^3/uL (4.0-10.0)
[2020-09-17 06:00] VITALS: BP 113/60
[2020-09-17 06:14] LABS: BLOOD UREA NITROGEN 11 MG/DL (7-18); CALCIUM LEVEL 8.7 MG/DL (8.8-10.2); CARBON DIOXIDE LEVEL 24 MEQ/L (21-32); CHLORIDE LEVEL 115 MEQ/L (98-107); GLOMERULAR FILTRATION RATE > 60.0 (>32); GLUCOSE, FASTING 132 MG/DL (70-100); POTASSIUM SERUM 3.5 MEQ/L (3.5-5.1); SODIUM LEVEL 143 MEQ/L (136-145)
[2020-09-17] MEDS: MEGESTROL 400MG 10ML SUSP ORAL SYRINGE *DRAW UP EXACT DOSE PO SCH (08:48)
[2020-09-17] MEDS: cefTRIAXone SOD 1 GM in D5W MINI-BAG PLUS 50 ML IV SCH (08:49)
[2020-09-17] MEDS: NYSTATIN 500,000 U/5 ML SUSP UDC SS SCH ×4 (08:50→21:49)
[2020-09-17] MEDS: PARoxetine 10MG TABLET PO SCH (08:50)
[2020-09-17] MEDS: ENOXAPARIN 40MG/0.4ML SYRINGE (J1650 PER 10MG) SC SCH (08:50)
[2020-09-17] MEDS ORDERED: FLAG500T PO (09:06)
[2020-09-17] MEDS ORDERED: CIPR-250 PO (09:06)
[2020-09-17] MEDS ORDERED: MEGE40SU5 PO (09:06)
[2020-09-17] MEDS ORDERED: NYST50SS SS (09:06)
[2020-09-17] MEDS ORDERED: BACI1CAP PO (11:04)
--- NOTE | 2020-09-17 12:10 | IPNPDOC ---
Date Seen The patient was seen on 09/17/20. Progress Note Subjective; NO N/V/F/CHILLS. daughter says no feeding tube, and considering hospice if pt continues to fail to thrive. advanced on diet, bacid added, and continue PT. Objective: PE vitals: see below General Exam: No distress HEENT: no jvd . mo ist mucous membranes. Recheck lipids Chest Exam: Clear to auscultation Heart Exam:Rate Normal, Regular Rhythm, Normal S1, Normal S2; Abdomen Exam:Normal bowel sounds, soft nt nd Extremity Exam: Negative: Clubbing, Cyanosis, edema Laboratory data/imaging: see below Assessment: Patient is 84 years old female with past medical history of Dementia, nephrolithiasis, depression, hypertension, hyperlipidemia admitted for AMS, treated for UTI as outpt, found to have acute diverticulitis. Acute Diverticulitis Dementia, endstage Failure to thrive Abnormal EKG: RBBB , PVC's Hypertension Urge retention Plan: medically stable for discharge. dc ivfluids. dc plans in am. change to cipro flagyl. since no feeding tube, pt will continue to deteriorate due to failure to thrive from dementia. daughter considering hospice. ensure tid w meals wants vanilla or chocolate. dc in am. VS, I&O, 24H, Fishbone Vital Signs/I&O Vital Signs Date Time Temp Pulse Resp B/P (MAP) Pulse Ox O2 Delivery O2 Flow Rate FiO2 09/17/20 06:00 98.2 69 17 113/60 (77) 94 Room Air I&O- Last 24 Hours up to 6 AM 09/17/20 06:00 Intake Total 2030 ml Output Total 475 ml Balance 1555 ml Laboratory Data 24H LABS Laboratory Tests 2 09/17/20 05:23: Immature Granulocyte % (Auto) 1.0, Neutrophils (%) (Auto) 81.6H, Lymphocytes (%) (Auto) 8.3L, Monocytes (%) (Auto) 7.9H, Eosinophils (%) (Auto) 1.0, Basophils (%) (Auto) 0.2, Neutrophils # (Auto) 9.7H, Lymphocytes # (Auto) 1.0L, Monocytes # (Auto) 0.9H, Eosinophils # (Auto) 0.1, Basophils # (Auto) 0.0, Nucleated Red Blood Cells % (auto) 0.0, Anion Gap 4L, Glomerular Filtration Rate > 60.0, Calcium Level 8.7L CBC/BMP Laboratory Tests 09/17/20 05:23 Microbiology Microbiology 09/13/20 Blood Culture - Preliminary, Resulted 09/13/20 Blood Culture - Preliminary, Resulted No Growth after 72 hours. All specime... 09/13/20 Urine Culture - Final, Complete DANIKA LOPEZ MD Sep 17, 2020 09:44
[2020-09-17 14:00] VITALS: BP 136/78
[2020-09-17] MEDS: LACTOBACILLUS ACIDOPHILUS CAP (BACID) PO SCH ×2 (14:13→17:28)
[2020-09-17] MEDS: metroNIDAZOLE (FLAGYL) 500MG TABLET PO SCH ×2 (14:13→21:50)
[2020-09-17] MEDS: ACETAMINOPHEN TAB 650MG DOSE (2X325MG) PO PRN (14:13)
[2020-09-17] MEDS: CIPROFLOXACIN 250MG TAB PO SCH (17:28)
[2020-09-17] MEDS: QUEtiapine FUMARATE 25 MG TAB PO SCH (21:49)
[2020-09-17 22:00] VITALS: BP 135/76
[2020-09-18 06:00] VITALS: BP 129/60
[2020-09-18] MEDS: CIPROFLOXACIN 250MG TAB PO SCH (06:03)
[2020-09-18] MEDS: metroNIDAZOLE (FLAGYL) 500MG TABLET PO SCH (06:03)
[2020-09-18 06:20] LABS: BASO % 0.3 % (0.0-1.0); EOS # 0.1 10^3/uL (0.0-0.5); HEMATOCRIT 39.3 % (36.0-47.0); HEMOGLOBIN 12.7 g/dl (12.0-15.5); LYMPH # 1.2 10^3/uL (1.5-5.0); LYMPH % 9.7 % (24.0-44.0); MEAN CORPUSCULAR HEMOGLOBIN 28.2 pg (27.0-33.0); MEAN CORPUSCULAR HGB CONC 32.3 g/dl (32.0-36.5); MEAN CORPUSCULAR VOLUME 87.3 fl (80.0-96.0); MONO # 0.9 10^3/uL (0.0-0.8); MONO % 7.3 % (0.0-5.0); NEUTROPHILS # 9.6 10^3/uL (1.5-8.5); NEUTROPHILS % 80.7 % (36.0-66.0); PLATELET COUNT, AUTOMATED 309 10^3/uL (150-450); WHITE BLOOD COUNT 11.9 10^3/uL (4.0-10.0)
[2020-09-18 06:39] LABS: BLOOD UREA NITROGEN 8 MG/DL (7-18); CALCIUM LEVEL 8.2 MG/DL (8.8-10.2); CARBON DIOXIDE LEVEL 23 MEQ/L (21-32); CHLORIDE LEVEL 111 MEQ/L (98-107); CREATININE FOR GFR 0.45 MG/DL (0.55-1.30); GLOMERULAR FILTRATION RATE > 60.0 (>32); GLUCOSE, FASTING 100 MG/DL (70-100); POTASSIUM SERUM 3.5 MEQ/L (3.5-5.1); SODIUM LEVEL 141 MEQ/L (136-145)
--- NOTE | 2020-09-18 09:34 | DS.PDOC ---
Discharge Summary General Date of Admission Sep 13, 2020 at 20:14 Date of Discharge 09/18/20 Discharge Summary Discharge diagnoses: Acute Diverticulitis Dementia, endstage Failure to thrive Abnormal EKG: RBBB , PVC's Hypertension Urinary retention Discharge medications: See below Discharge instructions: Patient has failure to thrive and is appropriate for hospice and comfort measures only as outpatient since she has declined feeding tube placement. She is not extubated the ability to adequately maintain hydration or nutrition, and daughter has decided to follow the patient's prior wish of no feeding tube. Intermittent catheterization for urinary retention. Continue antibiotics and encourage ensure 3 times a day with her meals primary care physician follow-up within 1 week of hospital discharge Hospital course: Patient is 84 years old female with past medical history of Dementia, nephrolithiasis, depression, hypertension, hyperlipidemia admitted for AMS, treated for UTI as outpt, found to have acute diverticulitis. Patient was hydrated with IV fluids, kept on IV antibiotics. She felt to m aintain hydration and nutrition orally and was kept on IV fluids for 4 days. Daughter insisted on no feeding tube and patient is discharged home to continue with as tolerated oral diet. She has remained afebrile with improved white count and to finish oral antibiotics at home. During the admission, she developed urine retention. The daughter did not want her to have bladder cath or bladder scans or a urinary catheter. Daughter can provide 24 7 care at home and she is being discharged with hospice consult that she is appropriate for comfort measures due to failure to thrive area Discharge PE vitals: see below General Exam: No distress HEENT: no jvd. Dry mucous membranes., No thyromegaly Chest Exam: Clear to auscultation Heart Exam:Rate Normal, Regular Rhythm, Normal S1, Normal S2; Abdomen Exam:Normal bowel sounds, soft nt nd Extremity Exam: Negative: Clubbing, Cyanosis, edema Laboratory data/imaging: see below Time spent on discharge 30 minutes Vital Signs/I&Os Vital Signs Date Time Temp Pulse Resp B/P (MAP) Pulse Ox O2 Delivery O2 Flow Rate FiO2 09/18/20 06:00 97.8 54 17 129/60 (83) 96 Room Air I&O- Last 24 Hours up to 6 AM 09/18/20 06:00 Intake Total 530 ml Output Total 300 ml Balance 230 ml Laboratory Data Labs 24H Laboratory Tests 2 09/18/20 05:24: Immature Granulocyte % (Auto) 1.0, Neutrophils (%) (Auto) 80.7H, Lymphocytes (%) (Auto) 9.7L, Monocytes (%) (Auto) 7.3H, Eosinophils (%) (Auto) 1.0, Basophils (%) (Auto) 0.3, Neutrophils # (Auto) 9.6H, Lymphocytes # (Auto) 1.2L, Monocytes # (Auto) 0.9H, Eosinophils # (Auto) 0.1, Basophils # (Auto) 0.0, Nucleated Red Blood Cells % (auto) 0.0, Anion Gap 7L, Glomerular Filtration Rate > 60.0, Calcium Level 8.2L CBC/BMP Laboratory Tests 09/18/20 05:24 Microbiology Microbiology 09/13/20 Blood Culture - Preliminary, Resulted 09/13/20 Blood Culture - Preliminary, Resulted No Growth after 72 hours. All specime... 09/13/20 Urine Culture - Final, Complete Discharge Medications Scheduled Bacillus Coagulans (Bacid with Lactospore) 1 Each Capsule, 1 CAP PO WM Ciprofloxacin HCl (Cipro) 250 Mg Tablet, 250 MG PO BID@,18 Megestrol Acetate (Megestrol Acetate) 400 Mg/10 Ml Oral.susp, 800 MG PO DAILY Metronidazole (Flagyl) 500 Mg Tablet, 500 MG PO Q8H Nystatin (Nystatin Oral Susp) 100,000 Unit/1 Ml Oral.susp, 5 ML SS QID Paroxetine (Paroxetine HCl) 10 Mg Tablet, 10 MG PO DAILY, (Reported) Allergies Coded Allergies: No Known Allergies (Unverified , 01/10/17) DANIKA LOPEZ MD Sep 18, 2020 09:34
[2020-09-18] MEDS: NYSTATIN 500,000 U/5 ML SUSP UDC SS SCH (09:44)
[2020-09-18] MEDS: LACTOBACILLUS ACIDOPHILUS CAP (BACID) PO SCH (09:45)
[2020-09-18] MEDS: ENOXAPARIN 40MG/0.4ML SYRINGE (J1650 PER 10MG) SC SCH (09:45)
[2020-09-18] MEDS: PARoxetine 10MG TABLET PO SCH (09:45)
[2020-09-18] MEDS: MEGESTROL 400MG 10ML SUSP ORAL SYRINGE *DRAW UP EXACT DOSE PO SCH (09:54)
[2020-09-18] MEDS ORDERED: [UNRECOGNIZED DRUG - OTHER] XX (12:20)
[2020-09-18] MEDS ORDERED: [UNRECOGNIZED DRUG - SUPPLY] EX (12:26)
== END 2020-09-18 13:41 | disposition home health service (06) | DRG 392 ==
LOC: M ED 14:57 → EEVIPCON 20:14 → M ED INP 20:14 → M MSPAV 09-14 09:00
PROVIDERS: ADMIT Internal Medicine; ATTEND General Practice
DX: K57.32 Diverticulitis of large intestine without perforation or abscess without bleeding (principal); F32.9 Major depressive disorder, single episode, unspecified; R53.1 Weakness; G30.9 Alzheimer's disease, unspecified; F02.80 Dementia in other diseases classified elsewhere, unspecified severity, without behavioral disturbance, psychotic disturbance, mood disturbance, and anxiety; R62.7 Adult failure to thrive; I45.10 Unspecified right bundle-branch block; E78.5 Hyperlipidemia, unspecified; N39.41 Urge incontinence; Z66 Do not resuscitate; I10 Essential (primary) hypertension; R33.9 Retention of urine, unspecified; Z20.828 Contact with and (suspected) exposure to other viral communicable diseases; Z79.899 Other long term (current) drug therapy; Z87.442 Personal history of urinary calculi